=== PATIENT | male | born 1990 | race Asian ===

== ENCOUNTER 2019-03-29 19:44 | Emergency (ER) | payer MEDICAID ==
[~2019-03-29] VITALS: Ht 162.6 cm; Wt 59.0 kg
[2019-03-30] MEDS ORDERED: KETOROLAC 30MG/ML VIAL IM ONE (00:30)
[2019-03-30 02:00] VITALS: BP 111/89
== END 2019-03-30 02:01 | disposition home or self-care (01) ==
LOC: ER 19:44
DX: S16.1XXA Strain of muscle, fascia and tendon at neck level, initial encounter (principal); W22.8XXA Striking against or struck by other objects, initial encounter; Y93.89 Activity, other specified; Y92.89 Other specified places as the place of occurrence of the external cause
CPT/HCPCS: 72125; 96372; 99284; J1885